=== PATIENT | female | born 1950 | race Asian ===

== ENCOUNTER 2019-08-24 10:23 | Emergency (ER) | payer OTHER ==
[2019-08-24 10:34] VITALS: BP 149/70; PULSE 71; TEMP 97.7; BMI 22.8
--- NOTE | 2019-08-24 11:10 | EKG ---
Test Reason : Blood Pressure : / mmHG Vent. Rate : 067 BPM Atrial Rate : 067 BPM P-R Int : 138 ms QRS Dur : 082 ms QT Int : 404 ms P-R-T Axes : 035 001 020 degrees QTc Int : 426 ms NORMAL SINUS RHYTHM NORMAL ECG NO PREVIOUS ECGS AVAILABLE Confirmed by AISLINN MORENO MD ([id number]) on 08/24/2019 11:10:31 AM Referred By: Confirmed By:AISLINN MORENO MD
--- NOTE | 2019-08-24 11:20 | PDOC ---
History of Present Illness - General Chief Complaint: Pain Stated Complaint: RT SIDE BREAST PAIN Time Seen by Provider: 08/24/19 11:05 History Source: Patient Exam Limitations: Clinical Condition - History of Present Illness Initial Comments: 08/24/19 11:30 Patient with no significant past medical history present with complaint of over 6 months history of right breast pain which she has seen PCP and given NSAIDs but pain still persists. Patient reported having mammogram done 4 months ago with normal findings. Patient reports she was also seen in the clinic in [place] for same symptoms and ultrasound was done few weeks ago and nothing was found. Patient reports a skin nodule was removed from the chest wall many years ago. Denies shortness of breath, chest pain, cough. Patient report pain to right breast only comes on when she pressed on the breast and no pain when the breast is now pressed. Denies any other symptoms Is this a multiple visit Asthma Patient?: No Timing/Duration: other (6 months) Past History - Past Medical History Allergies/Adverse Reactions: Allergies Allergy/AdvReac Type Severity Reaction Status Date / Time No Known Allergies Allergy Verified 08/24/19 10:29 Home Medications: Ambulatory Orders Acetaminophen [Tylenol .Extra-Strength -] 1,000 mg PO Q6H #100 tablet 11/03/13 RX: metFORMIN HCL [Glucophage -] 500 mg PO DAILY 11/03/13 COPD: No Diabetes: Yes - Surgical History Appendectomy: Yes - Immunization History Immunization Up to Date: Yes - Psycho Social/Smoking Cessation Hx Smoking History: Never smoked Number of Cigarettes Smoked Daily: 0 Cigars Per Day: 0 Hx Alcohol Use: No Review of Systems - Review of Systems Able to Perform ROS?: Yes Is the patient limited German proficient: No Constitutional: No: Chills, Fever, Malaise HEENTM: No: Symptoms Reported Respiratory: No: Symptoms reported, See HPI, Cough, Orthopnea, Shortness of Breath, SOB with Exertion, SOB at Rest, Stridor, Wheezing, Productive cough, Hemoptysis, Other Cardiac (ROS): No: Symptoms Reported, See HPI, Chest Pain, Edema, Irregular Heart Rate, Lightheadedness, Palpitations, Syncope, Chest Tightness, Other ABD/GI: No: Symptoms Reported, Nausea, Vomiting Musculoskeletal: Yes: Symptoms Reported, See HPI, Muscle Pain (right breast pain ) Integumentary: No: Symptoms Reported Neurological: No: Symptoms reported All Other Systems: Reviewed and Negative *Physical Exam - Vital Signs Last Vital Signs Temp Pulse Resp BP Pulse Ox 97.7 F 71 16 149/70 97 08/24/19 10:33 08/24/19 10:33 08/24/19 10:33 08/24/19 10:33 08/24/19 10:33 - Physical Exam General Appearance: Yes: Nourished, Appropriately Dressed. No: Apparent Distress HEENT: positive: Normal ENT Inspection Neck: positive: Supple Respiratory/Chest: positive: Lungs Clear, Normal Breath Sounds. negative: Respiratory Distress, Accessory Muscle Use Cardiovascular: positive: Regular Rhythm, Regular Rate Musculoskeletal: positive: Normal Inspection, Other (mild tenderness to right breast) Extremity: positive: Normal Capillary Refill, Normal Inspection Integumentary: positive: Normal Color. negative: Erythema, Rash (to breast) Neurologic: positive: Fully Oriented, Alert, Normal Mood/Affect, Normal Response ED Treatment Course - RADIOLOGY Radiology Studies Ordered: Category Date Time Status CHEST PA & LAT [RAD] Stat Radiology 08/24/19 11:17 Ordered Medical Decision Making - Medical Decision Making 08/24/19 11:32 Patient with no significant past medical history present with complaint of over 6 months history of right breast pain which she has seen PCP and given NSAIDs but pain still persists. Patient reported having mammogram done 4 months ago with normal findings. Patient reports she was also seen in the clinic in [place] for same symptoms and ultrasound was done few weeks ago and nothing was found. Patient reports a skin nodule was removed from the chest wall many years ago. Denies shortness of breath, chest pain, cough. Patient report pain to right breast only comes on when she pressed on the breast and no pain when the breast is now pressed. Denies any other symptoms Exam significant for mild tenderness on palpation to whole right breast with no palpable mass. No skin changes or erythema. No nipple inversion or discharge. No concern for breast mass at this time. Chest x-ray ordered to rule out any pathology. Patient be discharged home with breast specialist follow-up 08/24/19 11:58 Chest x-ray shows no acute pathology. Patient stable for discharge with breast surgeon follow-up Discharge - Discharge Information Problems reviewed: Yes Clinical Impression/Diagnosis: Breast pain, right Condition: Stable Disposition: HOME - Admission No - Follow up/Referral Referrals: Hernando Guan MD [Staff Physician] - - Patient Discharge Instructions Patient Printed Discharge Instructions: DI for Breast Pain (Mastalgia) Additional Instructions: Chest x-ray shows no acute pathology. Follow-up referred breast specialist as soon as possible for breast pain - Post Discharge Activity
== END 2019-08-24 13:26 | disposition home or self-care (01) ==
LOC: JERFT 10:23
DX: N64.4 Mastodynia (principal); E11.9 Type 2 diabetes mellitus without complications; Z79.84 Long term (current) use of oral hypoglycemic drugs
CPT/HCPCS: 71046-TC-FY; 93005; 93010; 99281-25

== ENCOUNTER 2020-08-09 15:11 | Emergency (ER) | payer OTHER ==
[2020-08-09 15:21] VITALS: BMI 24.0
[2020-08-09] MEDS ORDERED: ONDANSETRON 4 MG/2 ML VIAL IVPUSH ONE (16:47)
[2020-08-09] MEDS ORDERED: KETOROLAC TROMETHAMINE 15 MG/ML VIAL IVPUSH ONE (16:47)
[2020-08-09] MEDS ORDERED: ONDANSETRON 4 MG/2 ML VIAL ONE (16:51)
[2020-08-09] MEDS ORDERED: KETOROLAC TROMETHAMINE 15 MG/ML VIAL ONE (16:51)
[2020-08-09 16:52] LABS: BASO % 0.3 % (0-2.0); EOS % 0.2 % (0-4.5); HEMATOCRIT 34.7 % (32.4-45.2); HEMOGLOBIN 10.8 GM/dL (10.7-15.3); LYMPH % 18.5 % (8-40); MCH 20.5 pg (25.7-33.7); MCHC 31.3 g/dl (32.0-36.0); MEAN CELL VOLUME 65.5 fl (80-96); MEAN PLT VOLUME 10.8 fl (7.5-11.1); PLATELET COUNT 156 K/MM3 (134-434); RDW 15.6 % (11.6-15.6); WHITE BLOOD COUNT 12.4 K/mm3 (4.0-10.0)
[2020-08-09 17:10] LABS: INR 1.03 (0.83-1.09); PROTHROMBIN TIME (PATIENT) 12.7 SEC (9.7-13.0)
[2020-08-09 17:11] LABS: POTASSIUM 3.8 mmol/L (3.5-5.1)
[2020-08-09 17:12] LABS: CALCIUM 8.9 mg/dL (8.5-10.1)
[2020-08-09 17:13] LABS: BLOOD UREA NITROGEN 34.4 mg/dL (7-18)
[2020-08-09 17:16] LABS: CREATININE 0.7 mg/dL (0.55-1.3)
[2020-08-09 17:17] LABS: BILIRUBIN,TOTAL 0.5 mg/dL (0.2-1); TOT PROT 7.6 g/dl (6.4-8.2)
[2020-08-09 17:21] LABS: EPI CELLS 23 /uL (0-25.1); HYALINE CASTS 4 /uL (0-3.1); URINE APPEARANCE CLEAR; URINE BACTERIA 25 /uL (0-1359); URINE BILIRUBIN NEGATIVE (NEGATIVE); URINE COLOR YELLOW; URINE GLUCOSE (UA) NEGATIVE (NEGATIVE); URINE KETONE NEGATIVE (NEGATIVE); URINE LEUK ESTERASE 1+ (NEGATIVE); URINE NITRITE NEGATIVE (NEGATIVE); URINE PROTEIN TRACE (NEGATIVE); URINE RBC 35 /uL (0-23.9); URINE UROBILINOGEN 0.2 mg/dL (0.2-1.0); URINE WBC 110 /uL (0-25.8)
[2020-08-09 17:55] LABS: ANISOCYTOSIS 1+; MACROCYTOSIS 0; OVALOCYTE 1+; PLATELET ESTIMATE DECREASED; TARGET CELLS 1+
[2020-08-09] MEDS ORDERED: ACETAMINOPHEN 1000 MG/100 ML VIAL (NON FORMULARY) IVPB ONE (19:27)
[2020-08-09] MEDS ORDERED: SODIUM CHLORIDE 0.9% 500 ML INFUS.BAG IV ONE (19:27)
[2020-08-09] MEDS ORDERED: ACETAMINOPHEN INJECTION 100 ML IVPB ONE (20:21)
[2020-08-09 21:34] LABS: EPI CELLS 6 /uL (0-25.1); HYALINE CASTS 0 /uL (0-3.1); PH,URINE 5.5 (5.0-8.0); URINE APPEARANCE CLEAR; URINE BACTERIA 5 /uL (0-1359); URINE BILIRUBIN NEGATIVE (NEGATIVE); URINE COLOR YELLOW; URINE GLUCOSE (UA) NEGATIVE (NEGATIVE); URINE KETONE NEGATIVE (NEGATIVE); URINE LEUK ESTERASE NEGATIVE (NEGATIVE); URINE NITRITE NEGATIVE (NEGATIVE); URINE PROTEIN NEGATIVE (NEGATIVE); URINE RBC 307 /uL (0-23.9); URINE UROBILINOGEN 0.2 mg/dL (0.2-1.0); URINE WBC 3 /uL (0-25.8)
[2020-08-09 21:54] VITALS: BP 154/68; PULSE 74; TEMP 98.1
== END 2020-08-09 21:56 | disposition home or self-care (01) ==
LOC: JER 15:11
PROC: 3E0333Z Introduction of Anti-inflammatory into Peripheral Vein, Percutaneous Approach (ICD-10-PCS; principal; 2020-08-09)
PROC: 3E033GC Introduction of Other Therapeutic Substance into Peripheral Vein, Percutaneous Approach (ICD-10-PCS; 2020-08-09)
DX: N20.1 Calculus of ureter (principal)
CPT/HCPCS: 36415; 74176-TC; 80053; 81003; 83605; 83690; 85025; 85610; 87086; 99285-25; J0131

== ENCOUNTER 2021-01-02 11:56 | Emergency (ER) | payer OTHER ==
[2021-01-02 12:24] VITALS: BP 147/67; PULSE 75; TEMP 98.2; BMI 20.4
== END 2021-01-02 12:56 | disposition home or self-care (01) ==
LOC: JERFT 11:56
DX: N64.4 Mastodynia (principal)
CPT/HCPCS: 99283-25

== ENCOUNTER 2021-07-31 11:42 | Emergency (ER) | payer OTHER ==
[2021-07-31 11:57] VITALS: BMI 22.6
[2021-07-31 11:59] VITALS: TEMP 97.8
[2021-07-31] MEDS ORDERED: ACETAMINOPHEN 500 MG TABLET (FP) PO ONE (13:37)
[2021-07-31] MEDS ORDERED: LIDOCAINE 5% TOPICAL PATCH TP ONE (13:37)
[2021-07-31] MEDS ORDERED: ACETAMINOPHEN 500 MG TABLET (FP) ONE (13:52)
[2021-07-31] MEDS ORDERED: LIDOCAINE 5% TOPICAL PATCH ONE (13:52)
[2021-07-31 17:10] VITALS: BP 129/76; PULSE 80
[2021-07-31] MEDS ORDERED: LIDOCAINE PATCH REMOVAL MC ONE (22:00)
== END 2021-07-31 17:10 | disposition home or self-care (01) ==
LOC: JER 11:42
DX: N64.4 Mastodynia (principal)
CPT/HCPCS: 71046-TC-FY; 93005; 93010; 99284-25

== ENCOUNTER 2021-08-28 13:40 | Emergency (ER) | payer OTHER ==
[2021-08-28 14:15] VITALS: BMI 27.5
[2021-08-28] MEDS ORDERED: ACETAMINOPHEN 325 MG TABLET (FP) PO ONE (15:17)
[2021-08-28] MEDS ORDERED: ACETAMINOPHEN 500 MG TABLET (FP) ONE (15:22)
[2021-08-28 17:10] VITALS: BP 153/65; PULSE 78; TEMP 98
== END 2021-08-28 17:10 | disposition home or self-care (01) ==
LOC: JER 13:40
DX: R51.9 Headache, unspecified (principal); I10 Essential (primary) hypertension
CPT/HCPCS: 70450-TC; 99284-25

== ENCOUNTER 2021-09-03 21:14 | Emergency (ER) | payer OTHER ==
[2021-09-03 21:21] VITALS: TEMP 97; BMI 27.5
[2021-09-03] MEDS ORDERED: METOCLOPRAMIDE HCL INJECTION 10 MG/2 ML VIAL IVPB ONE (21:58)
[2021-09-03] MEDS ORDERED: METOCLOPRAMIDE HCL INJECTION 10 MG/2 ML VIAL ONE (22:08)
[2021-09-03 22:29] LABS: BASO % 0.4 % (0-2.0); EOS % 0.6 % (0-4.5); HEMOGLOBIN 10.9 GM/dL (10.7-15.3); LYMPH % 30.4 % (8-40); MCH 20.8 pg (25.7-33.7); MCHC 32.1 g/dl (32.0-36.0); MEAN CELL VOLUME 64.9 fl (80-96); MEAN PLT VOLUME 9.4 fl (7.5-11.1); MONO % 6.3 % (3.8-10.2); NEUT % 62.3 % (42.8-82.8); PLATELET COUNT 168 10^3/uL (134-434); RBC 5.23 M/mm3 (3.60-5.2); RDW 15.6 % (11.6-15.6)
[2021-09-03 22:37] LABS: INR 1.12 (0.83-1.09); PROTHROMBIN TIME (PATIENT) 13.1 SEC (9.7-13.0)
[2021-09-03 22:40] LABS: ACTIVATED PTT 33.4 SECONDS (25.2-36.5)
[2021-09-03 22:50] LABS: ALBUMIN 4.2 g/dl (3.4-5.0); CALCIUM 9.3 mg/dL (8.5-10.1)
[2021-09-03 22:53] LABS: CREATININE 0.6 mg/dL (0.55-1.3)
[2021-09-03 22:55] LABS: BILIRUBIN,TOTAL 0.7 mg/dL (0.2-1); TOT PROT 7.9 g/dl (6.4-8.2)
[2021-09-03 23:02] LABS: ANISOCYTOSIS 2+; MACROCYTOSIS 1+; OVALOCYTE 1+; PLATELET ESTIMATE NORMAL; TARGET CELLS 2+
[2021-09-04 01:08] VITALS: BP 139/74; PULSE 72
== END 2021-09-04 01:16 | disposition home or self-care (01) ==
LOC: JER 21:14
PROC: 3E033NZ Introduction of Analgesics, Hypnotics, Sedatives into Peripheral Vein, Percutaneous Approach (ICD-10-PCS; principal; 2021-09-03)
DX: G44.209 Tension-type headache, unspecified, not intractable (principal)
CPT/HCPCS: 36415; 70450-TC; 70460-TC; 80053; 85025; 85610; 85730; 93005; 93010; 99285-25

== ENCOUNTER 2021-09-11 20:47 | Emergency (ER) | payer OTHER ==
[2021-09-11 21:00] VITALS: TEMP 97; BMI 27.5
[2021-09-11 22:43] VITALS: BP 148/65; PULSE 80
== END 2021-09-11 22:30 | disposition home or self-care (01) ==
LOC: JER 20:47
DX: M54.9 Dorsalgia, unspecified (principal); H92.01 Otalgia, right ear
CPT/HCPCS: 99283-25